=== PATIENT | male | born 1980 | race Caucasian/White ===

== ENCOUNTER 2018-06-11 05:40 | Day surgery (SDC) | payer BC ==
[~2018-06-11] VITALS: Ht 177.8 cm; Wt 80.5 kg
--- NOTE | ~2018-06-11 | OP ---
PATIENT NAME: SHAY LABOY MEDICAL RECORD: [id number] LOCATION:D.OPS ADMISSION DATE: SURGEON: SHADE DOBSON MD DATE OF OPERATION: 06/11/2018 PREOPERATIVE DIAGNOSES: 1. Right inguinal hernia. 2. Ventral hernia. POSTOPERATIVE DIAGNOSES: 1. Right inguinal hernia. 2. Ventral hernia. PROCEDURES: 1. Right inguinal hernia repair with medium PHS mesh. 2. Ventral hernia repair without mesh. SURGEON: Shade Dobson MD FIRE EXTINGUISHER TECHNICIAN: John Colin REPORT OF PROCEDURE: The patient's abdomen was prepped and draped in sterile fashion. An oblique incision was made above the inguinal ligament. Electrocautery was used to dissect down through the subcutaneous tissue to the external oblique fascia. This fascia was opened up to the external ring using electrocautery. The ilioinguinal nerve was found and high ligated. The spermatic cord was elevated and a [place] was then placed around it. A direct hernia defect was noted and it was wide based. An opening was made in the inguinal floor and we opened up the preperitoneal space of Retzius. A medium PHS mesh was inserted and then sutured down on all sides using multiple interrupted 0 Vicryls. Wound was then irrigated out with normal saline and care was taken to assure there was no sign of any active bleeding. At this point, the external oblique fascia was closed with running 2-0 Vicryl, Estefani's was closed with interrupted 3-0 Vicryl, and the skin was closed with running subcutaneous 5-0 Monocryl. We then approached the umbilical region where the ventral hernia was present. A semicircular incision was made on the inferior aspect of the umbilicus. Electrocautery was used to dissect through the subcutaneous tissues. We elevated the patient's umbilicus and just above this, there was noted to be a small hernia defect. This defect was approximately 1 cm in greatest diameter and was a little bit more wide than it was tall. We freed up the tissues around the fascial edges and then reapproximated the fascial edges with interrupted 0 Prolenes times 3. The wound was then irrigated out with normal saline. The umbilicus was tacked back to the fascia using an interrupted 3-0 Vicryl. Subcutaneous tissues were reapproximated with interrupted 3-0 Vicryl and the skin was closed with running subcutaneous 5-0 Monocryl. A total of 10 mL of 0.25% Marcaine with epinephrine was infused into the surrounding tissues on the 2 wounds and the wounds were dressed appropriately. COMPLICATIONS: None. CONDITION: Stable. ANESTHESIA: General endotracheal and local. OPERATIVE REPORT [id number] SHAY LABOY BLOOD LOSS: Minimal. TRANSINT:[id number] Voice Confirmation ID: [id number] DOCUMENT ID: [id number] SHADE DOBSON MD at 1335 CC: JEFF BROWNING [id number] DICTATION DATE: 06/11/18923 ELECTRICAL ELECTRONICS TECHNICIAN: 06/11/18 1024 [facility] [place] 06/11/18 [facility] [address] [place] [address]
[2018-06-11 06:04] LABS: BASOPHILS 0.3 % (0-2); EOSINOPHILS 1.1 % (0-7); HEMATOCRIT 41.2 % (42.0-54.0); HEMOGLOBIN 14.2 g/dL (13.5-17.5); IMMATURE GRANULOCYTES 0.6 % (0-5); LYMPHOCYTES 30.4 % (15-50); MCH 29.8 pg (26.0-34.0); MCHC 34.5 g/dL (31.0-37.0); MCV 86.6 fL (80.0-100.0); MEAN PLATELET VOLUME 9.6 fL (7.4-10.4); MONOCYTES 9.9 % (2-11); NEUTROPHILS 57.7 % (40-80); PLATELET COUNT 207 10x3/uL (130-400); RBC 4.76 10x6/uL (4.20-6.10); RDW 12.7 % (11.5-14.5); WBC 7.1 10x3/uL (4.8-10.8)
[2018-06-11 06:20] VITALS: BMI 25.4
[2018-06-11 06:34] VITALS: BP 157/87; Ht 177.8 cm; Wt 80.5 kg
[2018-06-11 06:53] LABS: CALC OSMOLALITY 283 mosm/kg (275-300); CALCIUM 9.2 mg/dL (8.5-10.1); CARBON DIOXIDE 30.5 mmol/L (21.0-32.0); CHLORIDE - SERUM 102 mmol/L (98-107); CREATININE - SERUM 1.1 mg/dL (0.6-1.3); GLUCOSE 103 mg/dL (74-106); POTASSIUM - SERUM 3.8 mmol/L (3.5-5.1); SODIUM 142 mmol/L (136-145); UREA NITROGEN 16 mg/dL (7-18); eGFR NON AFRICAN AMERICAN 80 mL/min (90-120)
[2018-06-11] MEDS ORDERED: NORCO 10-325 TA1 TAB PO (09:19)
== END 2018-06-11 13:05 | disposition home or self-care (01) ==
LOC: D.OPS 05:40
PROVIDERS: Surgery
DX: K40.90 Unilateral inguinal hernia, without obstruction or gangrene, not specified as recurrent (principal); K43.9 Ventral hernia without obstruction or gangrene; Z01.812 Encounter for preprocedural laboratory examination